=== PATIENT | male | born 1935 | race Caucasian/White ===

== ENCOUNTER 2018-01-03 11:34 | Day surgery (SDC) | payer MEDICARE ==
[~2018-01-03] VITALS: Ht 185.4 cm; Wt 85.5 kg
[~2018-01-03 11:34] MED LIST: ASPI81EC PO; ATOR10; ATOR10 PO; CLON.1; CLON.1 PO; CYAN1000 PO; EXFORGE; EXFORGE HCT 101 EAC2; TRAZ50; TRAZ50 PO
== END 2018-01-03 13:50 | disposition home or self-care (01) ==
LOC: ORSCSDS 11:34
PROVIDERS: Ophthalmology
PROC: 08RJ3JZ Replacement of Right Lens with Synthetic Substitute, Percutaneous Approach (ICD-10-PCS; principal; 2018-01-03 13:00)
DX: H25.11 Age-related nuclear cataract, right eye (principal); H21.81 Floppy iris syndrome; I10 Essential (primary) hypertension; Z79.82 Long term (current) use of aspirin; Z79.899 Other long term (current) drug therapy
CPT/HCPCS: J2250; J7040; V2632

== ENCOUNTER 2021-01-01 11:01 | Emergency (ER) | payer MEDICARE, BC ==
[~2021-01-01] VITALS: Ht 185.4 cm; Wt 86.6 kg
[2021-01-01] MEDS ORDERED: AMLODIPINE BESYL5 MG PO (11:33)
[2021-01-01] MEDS ORDERED: IRBESARTAN300 M3 PO (11:34)
[2021-01-01 12:15] LABS: BASOPHILS ABSOLUTE AUTO 0.04 K/mm3 (0.00-0.23); BASOPHILS PERCENT AUTO 0 % (0-2); EOSINOPHILS ABSOLUTE AUTO 0.02 K/mm3 (0.00-0.68); EOSINOPHILS PERCENT AUTO 0 % (0-6); Hematocrit 37.3 % (37.0-53.0); Hemoglobin 12.6 g/dL (13.5-17.5); IMMATURE GRAN ABSOLUTE AUTO 0.09 K/mm3 (0.00-0.10); IMMATURE GRAN PERCENT AUTO 1 % (0-1); LYMPHOCYTES ABSOLUTE AUTO 0.74 K/mm3 (0.84-5.20); LYMPHOCYTES PERCENT AUTO 5 % (21-46); MONOCYTES ABSOLUTE AUTO 1.77 K/mm3 (0.16-1.47); MONOCYTES PERCENT AUTO 12 % (4-13); Mean Corpuscular HGB 33.8 pg (26.0-34.0); Mean Corpuscular HGB Conc 33.8 g/dL (31.5-36.5); Mean Corpuscular Volume 100 fL (80-100); Mean Platelet Volume 11.2 fL (9.1-12.4); NEUTROPHILS PERCENT AUTO 82 % (41-73); Platelet Count 165 K/mm3 (150-400); RDW Coefficient Variation 13.4 % (11.7-14.2); Red Blood Cell Count 3.73 M/mm3 (4.30-5.90); White Blood Cell Count 15.16 K/mm3 (4.00-11.30)
[2021-01-01 12:20] LABS: Alanine Aminotransfer (ALT/SGP 45 U/L (12-78); Albumin, Blood 3.4 g/dL (3.4-5.0); Alk Phos 63 U/L (50-136); Anion Gap 4 mmol/L (6-16); Aspartate Aminotrans (AST/SGOT 28 U/L (12-37); Bilirubin, Total 1.1 mg/dL (0.1-1.0); Blood Urea Nitrogen 29 mg/dL (8-24); Bun/Creatinine Ratio 25.9 (12.0-20.0); CO2, Blood 28 mmol/L (21-32); Calcium, Blood 8.6 mg/dL (8.5-10.1); Chloride, Blood 103 mmol/L (98-108); Creatinine, Blood 1.12 mg/dL (0.60-1.20); Globulin, Blood 3.3 g/dL (2.2-4.0); Glomerular Filtration Rate >60 (60-); Glucose, Blood 132 mg/dL (70-99); Sodium, Blood 135 mmol/L (136-145); Total Protein, Blood 6.7 g/dL (6.4-8.2)
[2021-01-01] MEDS ORDERED: AMOX-CLAV 875-1 EAC1 PO (13:29)
[2021-01-01] MEDS ORDERED: Norco 5-325 Ta1 EACH PO (13:53)
== END 2021-01-01 13:47 | disposition home or self-care (01) ==
LOC: ER 11:01
PROVIDERS: Emergency Medicine
DX: L03.115 Cellulitis of right lower limb (principal); L02.612 Cutaneous abscess of left foot; Z79.899 Other long term (current) drug therapy
CPT/HCPCS: 36415; 73700; 80053; 85025; 96365; 99284-25; J3370

== ENCOUNTER → 2021-01-06 | Outpatient (CLI) | payer MEDICARE, BC ==
[~2021-01-06] MED LIST changes: +AMLODIPINE BESYL5 MG PO; +AMOX-CLAV 875-1 EAC1 PO; +Acetaminophen325 M1 PO; +IBUP400 PO; +IRBESARTAN300 M3 PO; +Norco 5-325 Ta1 EACH PO
== END | disposition home or self-care (01) ==
LOC: LAB SHORT 10:49 → LAB 10:49
DX: L03.115 Cellulitis of right lower limb (principal); I70.234 Atherosclerosis of native arteries of right leg with ulceration of heel and midfoot; L97.422 Non-pressure chronic ulcer of left heel and midfoot with fat layer exposed
CPT/HCPCS: 87070; 87071; 87075; 87077; 87147; 87186; 87205

== ENCOUNTER 2021-01-08 08:47 | Day surgery (SDC) | payer MEDICARE, BC ==
[~2021-01-08] VITALS: Ht 185.4 cm; Wt 87.0 kg
[~2021-01-08 08:47] MED LIST changes: -Acetaminophen325 M1 PO; -IBUP400 PO
[2021-01-08] MEDS ORDERED: IBUP400 PO (09:48)
[2021-01-08] MEDS ORDERED: Acetaminophen325 M1 PO (09:48)
== END 2021-01-08 11:37 | disposition home or self-care (01) ==
LOC: ATC 08:47
DX: I70.234 Atherosclerosis of native arteries of right leg with ulceration of heel and midfoot (principal); L97.412 Non-pressure chronic ulcer of right heel and midfoot with fat layer exposed; L03.115 Cellulitis of right lower limb; I10 Essential (primary) hypertension; I25.2 Old myocardial infarction; Z87.891 Personal history of nicotine dependence
CPT/HCPCS: 82565; 96365; J3370; J7050

== ENCOUNTER 2021-01-09 09:31 | Day surgery (SDC) | payer MEDICARE, BC ==
[~2021-01-09 09:31] MED LIST changes: +Acetaminophen325 M1 PO; +IBUP400 PO
== END 2021-01-09 11:14 | disposition home or self-care (01) ==
LOC: ATC 09:31
DX: I70.234 Atherosclerosis of native arteries of right leg with ulceration of heel and midfoot (principal); L03.115 Cellulitis of right lower limb; L97.422 Non-pressure chronic ulcer of left heel and midfoot with fat layer exposed; I10 Essential (primary) hypertension; Z87.891 Personal history of nicotine dependence
CPT/HCPCS: 96365; 96366; J3370; J7050

== ENCOUNTER 2021-01-10 00:16 | Day surgery (SDC) | payer MEDICARE, BC ==
[2021-01-10 09:48] LABS: Creatinine, Blood 1.07 mg/dL (0.60-1.20); Vancomycin, Trough 9.6 ug/mL (5.0-10.0)
== END 2021-01-10 11:47 | disposition home or self-care (01) ==
LOC: ATC 00:16
PROVIDERS: Podiatrist
DX: I70.234 Atherosclerosis of native arteries of right leg with ulceration of heel and midfoot (principal); L97.412 Non-pressure chronic ulcer of right heel and midfoot with fat layer exposed; L03.115 Cellulitis of right lower limb; L02.611 Cutaneous abscess of right foot; I70.292 Other atherosclerosis of native arteries of extremities, left leg; I10 Essential (primary) hypertension; I25.2 Old myocardial infarction; I35.1 Nonrheumatic aortic (valve) insufficiency; Z87.891 Personal history of nicotine dependence
CPT/HCPCS: 80202; 82565; 96365; 96366; J3370; J7050

== ENCOUNTER 2021-01-10 11:55 | Emergency (ER) | payer MEDICARE, BC ==
[~2021-01-10] VITALS: Ht 185.4 cm; Wt 87.1 kg
[2021-01-10 13:20] LABS: BASOPHILS ABSOLUTE AUTO 0.09 K/mm3 (0.00-0.23); BASOPHILS PERCENT AUTO 1 % (0-2); EOSINOPHILS ABSOLUTE AUTO 0.28 K/mm3 (0.00-0.68); EOSINOPHILS PERCENT AUTO 4 % (0-6); Hematocrit 39.1 % (37.0-53.0); IMMATURE GRAN PERCENT AUTO 3 % (0-1); LYMPHOCYTES ABSOLUTE AUTO 1.21 K/mm3 (0.84-5.20); LYMPHOCYTES PERCENT AUTO 16 % (21-46); MONOCYTES ABSOLUTE AUTO 0.94 K/mm3 (0.16-1.47); MONOCYTES PERCENT AUTO 13 % (4-13); Mean Corpuscular HGB 34.3 pg (26.0-34.0); Mean Corpuscular HGB Conc 33.2 g/dL (31.5-36.5); Mean Corpuscular Volume 103 fL (80-100); Mean Platelet Volume 10.9 fL (9.1-12.4); NEUTROPHILS ABSOLUTE AUTO 4.76 K/mm3 (1.96-9.15); NEUTROPHILS PERCENT AUTO 64 % (41-73); Platelet Count 276 K/mm3 (150-400); RDW Coefficient Variation 13.2 % (11.7-14.2); RDW Standard Deviation 49.3 fL (35.1-46.3); Red Blood Cell Count 3.79 M/mm3 (4.30-5.90); White Blood Cell Count 7.48 K/mm3 (4.00-11.30)
[2021-01-10 13:26] LABS: Alanine Aminotransfer (ALT/SGP 43 U/L (12-78); Albumin, Blood 3.3 g/dL (3.4-5.0); Albumin/Globulin Ratio 0.9 (0.8-1.8); Alk Phos 53 U/L (50-136); Anion Gap 1 mmol/L (6-16); Aspartate Aminotrans (AST/SGOT 29 U/L (12-37); Bilirubin, Total 0.5 mg/dL (0.1-1.0); Blood Urea Nitrogen 18 mg/dL (8-24); Bun/Creatinine Ratio 18.7 (12.0-20.0); CO2, Blood 30 mmol/L (21-32); Calcium, Blood 8.9 mg/dL (8.5-10.1); Chloride, Blood 107 mmol/L (98-108); Creatinine, Blood 0.97 mg/dL (0.60-1.20); Globulin, Blood 3.8 g/dL (2.2-4.0); Glomerular Filtration Rate >60 (60-); Glucose, Blood 97 mg/dL (70-99); Potassium, Blood 5.1 mmol/L (3.5-5.5); Sodium, Blood 138 mmol/L (136-145); Total Protein, Blood 7.1 g/dL (6.4-8.2)
[2021-01-10 15:00] LABS: Stool Occult Blood Guaiac 1 Neg (Neg)
== END 2021-01-10 14:54 | disposition home or self-care (01) ==
LOC: ER 11:55
PROVIDERS: Physician Assistant
DX: K92.1 Melena (principal); D64.9 Anemia, unspecified
CPT/HCPCS: 36415; 80053; 82272; 85025; 86850; 86870; 86900; 86901; 99283

== ENCOUNTER 2021-01-11 00:07 | Day surgery (SDC) | payer MEDICARE, BC | END 2021-01-11 10:35 | disposition home or self-care (01) | LOC: ATC 00:07 | DX: I70.234 Atherosclerosis of native arteries of right leg with ulceration of heel and midfoot (principal); L97.412 Non-pressure chronic ulcer of right heel and midfoot with fat layer exposed; L03.115 Cellulitis of right lower limb; I25.2 Old myocardial infarction; I10 Essential (primary) hypertension; I35.1 Nonrheumatic aortic (valve) insufficiency; Z87.891 Personal history of nicotine dependence | CPT/HCPCS: 96365; J3370; J7050 ==

== ENCOUNTER 2021-01-12 04:52 | Day surgery (SDC) | payer MEDICARE, BC | END 2021-01-12 10:50 | disposition home or self-care (01) | LOC: ATC 04:52 | DX: I70.234 Atherosclerosis of native arteries of right leg with ulceration of heel and midfoot (principal); L97.412 Non-pressure chronic ulcer of right heel and midfoot with fat layer exposed; L03.115 Cellulitis of right lower limb; I70.292 Other atherosclerosis of native arteries of extremities, left leg; I10 Essential (primary) hypertension; I25.2 Old myocardial infarction; I35.1 Nonrheumatic aortic (valve) insufficiency; Z87.891 Personal history of nicotine dependence | CPT/HCPCS: 96365; 96366; J3370; J7050 ==

== ENCOUNTER 2021-02-24 20:38 | Inpatient (IN) | payer MEDICARE, BC ==
[~2021-02-24] VITALS: Ht 182.9 cm; Wt 82.5 kg
[2021-02-24 21:44] LABS: BASOPHILS ABSOLUTE AUTO 0.04 K/mm3 (0.00-0.23); BASOPHILS PERCENT AUTO 1 % (0-2); EOSINOPHILS ABSOLUTE AUTO 0.15 K/mm3 (0.00-0.68); EOSINOPHILS PERCENT AUTO 2 % (0-6); Hematocrit 24.2 % (37.0-53.0); Hemoglobin 8.2 g/dL (13.5-17.5); IMMATURE GRAN PERCENT AUTO 1 % (0-1); LYMPHOCYTES ABSOLUTE AUTO 1.55 K/mm3 (0.84-5.20); LYMPHOCYTES PERCENT AUTO 19 % (21-46); MONOCYTES ABSOLUTE AUTO 1.11 K/mm3 (0.16-1.47); MONOCYTES PERCENT AUTO 13 % (4-13); Mean Corpuscular HGB 34.7 pg (26.0-34.0); Mean Corpuscular HGB Conc 33.9 g/dL (31.5-36.5); Mean Corpuscular Volume 103 fL (80-100); Mean Platelet Volume 11.3 fL (9.1-12.4); NEUTROPHILS PERCENT AUTO 65 % (41-73); Platelet Count 176 K/mm3 (150-400); RDW Coefficient Variation 14.1 % (11.7-14.2); RDW Standard Deviation 51.9 fL (35.1-46.3); Red Blood Cell Count 2.36 M/mm3 (4.30-5.90); White Blood Cell Count 8.35 K/mm3 (4.00-11.30)
[2021-02-24 21:59] LABS: Alanine Aminotransfer (ALT/SGP 32 U/L (12-78); Albumin, Blood 2.8 g/dL (3.4-5.0); Albumin/Globulin Ratio 1.2 (0.8-1.8); Alk Phos 40 U/L (50-136); Anion Gap 6 mmol/L (6-16); Aspartate Aminotrans (AST/SGOT 17 U/L (12-37); Bilirubin, Total 0.5 mg/dL (0.1-1.0); Blood Urea Nitrogen 71 mg/dL (8-24); Bun/Creatinine Ratio 75.9 (12.0-20.0); CO2, Blood 25 mmol/L (21-32); Calcium, Blood 7.8 mg/dL (8.5-10.1); Chloride, Blood 104 mmol/L (98-108); Creatinine, Blood 0.94 mg/dL (0.60-1.20); Globulin, Blood 2.3 g/dL (2.2-4.0); Glomerular Filtration Rate >60 (60-); Glucose, Blood 154 mg/dL (70-99); Potassium, Blood 4.5 mmol/L (3.5-5.5); Sodium, Blood 135 mmol/L (136-145); Total Protein, Blood 5.1 g/dL (6.4-8.2); Troponin I <0.015 ng/mL (0.000-0.040)
[2021-02-25 03:08] LABS: BASOPHILS ABSOLUTE AUTO 0.03 K/mm3 (0.00-0.23); BASOPHILS PERCENT AUTO 0 % (0-2); EOSINOPHILS ABSOLUTE AUTO 0.05 K/mm3 (0.00-0.68); EOSINOPHILS PERCENT AUTO 1 % (0-6); Hematocrit 23.7 % (37.0-53.0); Hemoglobin 8.2 g/dL (13.5-17.5); IMMATURE GRAN ABSOLUTE AUTO 0.08 K/mm3 (0.00-0.10); IMMATURE GRAN PERCENT AUTO 1 % (0-1); LYMPHOCYTES ABSOLUTE AUTO 0.97 K/mm3 (0.84-5.20); LYMPHOCYTES PERCENT AUTO 11 % (21-46); MONOCYTES ABSOLUTE AUTO 0.88 K/mm3 (0.16-1.47); MONOCYTES PERCENT AUTO 10 % (4-13); Mean Corpuscular HGB 34.6 pg (26.0-34.0); Mean Corpuscular HGB Conc 34.6 g/dL (31.5-36.5); Mean Corpuscular Volume 100 fL (80-100); Mean Platelet Volume 10.9 fL (9.1-12.4); NEUTROPHILS ABSOLUTE AUTO 6.94 K/mm3 (1.96-9.15); NEUTROPHILS PERCENT AUTO 78 % (41-73); Platelet Count 165 K/mm3 (150-400); RDW Coefficient Variation 14.1 % (11.7-14.2); RDW Standard Deviation 50.4 fL (35.1-46.3); Red Blood Cell Count 2.37 M/mm3 (4.30-5.90); White Blood Cell Count 8.95 K/mm3 (4.00-11.30)
[2021-02-25 03:23] LABS: Anion Gap 4 mmol/L (6-16); Blood Urea Nitrogen 58 mg/dL (8-24); Bun/Creatinine Ratio 68.6 (12.0-20.0); CO2, Blood 27 mmol/L (21-32); Calcium, Blood 7.6 mg/dL (8.5-10.1); Chloride, Blood 107 mmol/L (98-108); Creatinine, Blood 0.85 mg/dL (0.60-1.20); Glomerular Filtration Rate >60 (60-); Glucose, Blood 120 mg/dL (70-99); Potassium, Blood 4.4 mmol/L (3.5-5.5); Sodium, Blood 138 mmol/L (136-145)
[2021-02-25 09:29] LABS: Hematocrit 20.8 % (37.0-53.0); Hemoglobin 7.1 g/dL (13.5-17.5)
[2021-02-25 13:25] LABS: Percent Saturation 48.7 % (20.0-50.0)
[2021-02-25 16:24] LABS: Hematocrit 21.9 % (37.0-53.0); Hemoglobin 7.3 g/dL (13.5-17.5)
--- NOTE | 2021-02-25 18:03 | NUR ---
PT CAME TO PCU WITH A HIGH RISK BLOOD TRANSFUSION WAIVER THAT HAS BEEN SIGNED BY DR XIAO AND SENT BACK TO [facility]. DR HERNANDEZ WAS IN TO THE SEE PT AND HAS NOW ORDERED [address] HERNANDEZ WILL TAKE PT FOR EGD THIS EVENING. PT IS A/O X3 HE IS A POOR HISTORIAN ANSWERS ALL ADMISSION QUESTIONS FOR HIM VIA PHONE. PT C/O SHAKING WHICH DR XIAO GAVE ORDERS FOR REQUIP WHICH HAS BEGAN TO HAVE A MINIMAL EFFECT ON. NO BLACK STOOLS OR BLOODY EMESIS. VSS. PT DENIES ABD PAIN
--- NOTE | 2021-02-25 20:34 | NUR ---
PT INTO DAYSURGERY BY [facility]BER BY OTHER RN. History, Chart, Medications and Allergies reviewed before start of procedure. Lungs clear T/O to Auscultation. Patient confirms NPO status and agrees with scheduled surgery. Pre-Op teaching done. Pt verbalizes understanding.
--- NOTE | 2021-02-25 20:55 | NUR ---
02/25/[id number] Jimmy Mar History, Chart, Medications and Allergies reviewed before start of procedure. MONITOR INTACT WITH CONTINUOUS PULSE OXIMETRY AND INTERMITTENT BP. EKG MONITORED DURING PROCEDURE. O2 VIA N/C INTACT THROUGHOUT SEDATION/PROCEDURE. Bite Block Placed. See Anesthesia record/DR SALCEDO.
--- NOTE | 2021-02-26 04:05 | NUR ---
RETURN FROM SCOPE PT TO ROOM FOR DAY SURGERY POST SCOPE WITH DR HERNANDEZ @4831. PT PRESENTS ALERT BUT STILL PROCESSING SEDATION. PT COMPLAINING OF SEVERE HIP/BACK PAIN. SHIFTING IN BED CONSTANTLY. PT TO ROOM ON RA, PLACED ON 4LNC DUE TO SPO2 <90%. WITH PT. DR HERNANDEZ TO ROOM. STATES PT WILL NEED TO GO TO [facility] FOR CAUTERZATION BUT STATES HE WILL TALK WITH DR FORRESTER TO SEE IF HE HAS EXPERIENCE DOING THIS PROCEDURE IN ORDER TO COMPLETE THE PROCEDURE HERE INSTEAD OF THE PT BEING TRANSPORTED. PT/SPOUSE AWARE OF THIS PLAN AND SUPPORTIE OF IT. DR SALGADO CALLED REGARDING PAIN MEDS, PO OXYCODONE ORDERED. WITH THIS AND PT REPOSITIONING, PT STATES PAIN HAS CEASED. PT SLOWLY HAS COME OUT OF "MENTAL HAZE" POST ANESTHESIA.
[2021-02-26 04:06] LABS: Hematocrit 24.1 % (37.0-53.0); Mean Corpuscular HGB 33.3 pg (26.0-34.0); Mean Corpuscular HGB Conc 33.2 g/dL (31.5-36.5); Mean Corpuscular Volume 100 fL (80-100); Mean Platelet Volume 11.3 fL (9.1-12.4); Platelet Count 150 K/mm3 (150-400); RDW Standard Deviation 58.3 fL (35.1-46.3); White Blood Cell Count 7.61 K/mm3 (4.00-11.30)
[2021-02-26 04:22] LABS: International Normalized Ratio 1.01; Prothrombin Time Results 10.9 Sec (9.7-11.5)
[2021-02-26 04:27] LABS: Alanine Aminotransfer (ALT/SGP 29 U/L (12-78); Albumin, Blood 2.7 g/dL (3.4-5.0); Albumin/Globulin Ratio 1.1 (0.8-1.8); Alk Phos 32 U/L (50-136); Anion Gap 5 mmol/L (6-16); Aspartate Aminotrans (AST/SGOT 46 U/L (12-37); Bilirubin, Total 0.5 mg/dL (0.1-1.0); Blood Urea Nitrogen 41 mg/dL (8-24); Bun/Creatinine Ratio 46.3 (12.0-20.0); CO2, Blood 23 mmol/L (21-32); Calcium, Blood 7.6 mg/dL (8.5-10.1); Chloride, Blood 110 mmol/L (98-108); Creatinine, Blood 0.89 mg/dL (0.60-1.20); Globulin, Blood 2.5 g/dL (2.2-4.0); Glomerular Filtration Rate >60 (60-); Glucose, Blood 148 mg/dL (70-99); Potassium, Blood 4.6 mmol/L (3.5-5.5); Sodium, Blood 138 mmol/L (136-145); Total Protein, Blood 5.2 g/dL (6.4-8.2)
--- NOTE | 2021-02-26 05:31 | NUR ---
SHIFT SUMMARY PT AXO. IN SR. BP'S STABLE POST SCOPE WITH SOME SOFT BP'S NONSUSTAINING. LUNG SOUNDS REMAIN CLEAR. 1U PRBC INFUSED THIS SHIFT W/OUT COMPLICATION. CONDOM CATHIN PLACE FOR POLYURIA. PT HAD 1 DARK BROWN FORMED STOOL THIS SHIFT. PROTONIX & OCREOTIDE GTT INFUSING. WCTM.
[2021-02-26 13:33] LABS: SARS-Cov-2 (COVID-19) PCR, MMC NEGATIVE (NEGATIVE)
--- NOTE | 2021-02-26 15:44 | NUR ---
[facility] PERSONAL FITNESS MANAGER INFORMED THIS RN OF BED AVAILABILITY FOR PT. PT AND HIS INFORMED OF TRANSFER PLAN AND DESTINATON 5A RM 13 AT [facility]. DR XIAO NOTIFIED AND WILL BE PLACING TRANSFER ORDER. DR HERNANDEZ HAS BEEN IN TO SEE PT TODAY AND SPEAKING WITH PROVIDERS ACCEPTING TRANSFER AT [facility].
--- NOTE | 2021-02-26 16:42 | NUR ---
PT TRANSFERRED TO [facility] VIA AMBULANCE TRANSPORT AT THIS TIME. OCTREOTIDE AND PROTONIX GTTS CONTINUE. VSS. REPORT GIVEN TO [facility] AND RECEIVING FACILITY NOTIFIED OF PT'S DEPARTURE.
== END 2021-02-26 16:35 | disposition short-term general hospital (02) | DRG 300 ==
LOC: ER 20:38 → ERHOLD 23:23 → PCU 02-25 12:34
PROVIDERS: Emergency Medicine; Internal Medicine; Internal Medicine Gastroenterology; ADMIT Family Medicine
PROC: 30233N1 Transfusion of Nonautologous Red Blood Cells into Peripheral Vein, Percutaneous Approach (ICD-10-PCS; 2021-02-25)
PROC: 0DJ08ZZ Inspection of Upper Intestinal Tract, Via Natural or Artificial Opening Endoscopic (ICD-10-PCS; principal; 2021-02-25 20:30)
DX: I86.4 Gastric varices (principal); D62 Acute posthemorrhagic anemia; E87.1 Hypo-osmolality and hyponatremia; I24.8 Other forms of acute ischemic heart disease; L97.419 Non-pressure chronic ulcer of right heel and midfoot with unspecified severity; Z20.822 Contact with and (suspected) exposure to COVID-19; E86.0 Dehydration; K22.8 Other specified diseases of esophagus; I25.2 Old myocardial infarction; I25.10 Atherosclerotic heart disease of native coronary artery without angina pectoris; K22.70 Barrett's esophagus without dysplasia; E78.5 Hyperlipidemia, unspecified; I10 Essential (primary) hypertension; K74.60 Unspecified cirrhosis of liver; K25.9 Gastric ulcer, unspecified as acute or chronic, without hemorrhage or perforation; T39.315A Adverse effect of propionic acid derivatives, initial encounter; Z79.899 Other long term (current) drug therapy; Z87.891 Personal history of nicotine dependence
CPT/HCPCS: 36415; 36430; 51702; 71260; 80048; 80053; 82105; 82272; 82728; 82947; 83540; 83550; 83690; 84484; 85014; 85018; 85025; 85027; 85610; 86850; 86870; 86900; 86901; 86922; 93005; 93010; 96365-59; 96366-59; 96375-59; 99285-25; A9270; C9113; J0696; J2354; J2370; J2405; J2704; J3010; J7030; J7050; J7120; P9016; Q9967; U0004

== ENCOUNTER → 2021-03-18 | Outpatient (CLI) | payer MEDICARE, BC ==
[2021-03-18 12:34] LABS: BASOPHILS ABSOLUTE AUTO 0.04 K/mm3 (0.00-0.23); BASOPHILS PERCENT AUTO 1 % (0-2); EOSINOPHILS ABSOLUTE AUTO 0.09 K/mm3 (0.00-0.68); EOSINOPHILS PERCENT AUTO 3 % (0-6); Hematocrit 26.6 % (37.0-53.0); Hemoglobin 8.2 g/dL (13.5-17.5); IMMATURE GRAN ABSOLUTE AUTO 0.01 K/mm3 (0.00-0.10); IMMATURE GRAN PERCENT AUTO 0 % (0-1); LYMPHOCYTES PERCENT AUTO 25 % (21-46); MONOCYTES ABSOLUTE AUTO 0.44 K/mm3 (0.16-1.47); MONOCYTES PERCENT AUTO 14 % (4-13); Mean Corpuscular HGB 33.6 pg (26.0-34.0); Mean Corpuscular HGB Conc 30.8 g/dL (31.5-36.5); Mean Corpuscular Volume 109 fL (80-100); Mean Platelet Volume 10.6 fL (9.1-12.4); NEUTROPHILS ABSOLUTE AUTO 1.79 K/mm3 (1.96-9.15); NEUTROPHILS PERCENT AUTO 57 % (41-73); Platelet Count 223 K/mm3 (150-400); RDW Standard Deviation 68.2 fL (35.1-46.3); Red Blood Cell Count 2.44 M/mm3 (4.30-5.90); White Blood Cell Count 3.17 K/mm3 (4.00-11.30)
== END | disposition home or self-care (01) ==
LOC: LAB SHORT 10:23 → LAB 10:23
PROVIDERS: Internal Medicine
DX: D64.9 Anemia, unspecified (principal)
CPT/HCPCS: 85025

== ENCOUNTER → 2021-03-25 | Outpatient (CLI) | payer MEDICARE, BC ==
[2021-03-25 15:59] LABS: BASOPHILS ABSOLUTE AUTO 0.06 K/mm3 (0.00-0.23); BASOPHILS PERCENT AUTO 2 % (0-2); EOSINOPHILS ABSOLUTE AUTO 0.12 K/mm3 (0.00-0.68); EOSINOPHILS PERCENT AUTO 3 % (0-6); Hematocrit 29.5 % (37.0-53.0); IMMATURE GRAN ABSOLUTE AUTO 0.01 K/mm3 (0.00-0.10); IMMATURE GRAN PERCENT AUTO 0 % (0-1); LYMPHOCYTES ABSOLUTE AUTO 1.07 K/mm3 (0.84-5.20); LYMPHOCYTES PERCENT AUTO 28 % (21-46); MONOCYTES ABSOLUTE AUTO 0.54 K/mm3 (0.16-1.47); MONOCYTES PERCENT AUTO 14 % (4-13); Mean Corpuscular HGB 32.5 pg (26.0-34.0); Mean Corpuscular HGB Conc 30.5 g/dL (31.5-36.5); Mean Corpuscular Volume 107 fL (80-100); NEUTROPHILS ABSOLUTE AUTO 2.07 K/mm3 (1.96-9.15); NEUTROPHILS PERCENT AUTO 53 % (41-73); Platelet Count 215 K/mm3 (150-400); RDW Coefficient Variation 16.9 % (11.7-14.2); RDW Standard Deviation 67.7 fL (35.1-46.3); Red Blood Cell Count 2.77 M/mm3 (4.30-5.90); White Blood Cell Count 3.87 K/mm3 (4.00-11.30)
== END | disposition home or self-care (01) ==
LOC: LAB 15:24 → LAB SHORT 15:24
PROVIDERS: Internal Medicine
DX: D64.9 Anemia, unspecified (principal)
CPT/HCPCS: 85025

== ENCOUNTER 2021-09-13 11:49 | Emergency (ER) | payer MEDICARE, BC ==
[~2021-09-13] VITALS: Ht 182.9 cm; Wt 83.5 kg
== END 2021-09-13 14:18 | disposition home or self-care (01) ==
LOC: ER 11:49
DX: M70.21 Olecranon bursitis, right elbow (principal); Z79.899 Other long term (current) drug therapy; Z79.891 Long term (current) use of opiate analgesic
CPT/HCPCS: 20605; 99282-25